=== PATIENT | female | born 1985 | race Two or more races ===

== ENCOUNTER 2018-08-31 16:52 | Emergency (ER) | payer MEDICAID ==
[~2018-08-31] VITALS: Ht 170.2 cm; Wt 103.5 kg
--- NOTE | 2018-08-31 17:08 | NUR ---
PT ARRIVED TO ROOM 16 FROM ED TRIAGE, PT AMBULATORY. PT C/O NAUSEA, INTERMITTENT ABDOMINAL PAIN AND DIARRHEA, AND BODY ACHES. PT ALSO C/O THROAT SORENESS. VSS, AAO X 4, RESTING COMFORTABLY ON GURNEY. SIDERAIL X [address], CALL LIGHT AND BELONGINGS WITHIN REACH, FRIEND AT BEDSIDE.
[2018-08-31] MEDS ORDERED: KETOROLAC 30 MG/1 ML IM ONE (17:30)
--- NOTE | 2018-08-31 17:31 | NUR ---
PT AMBULATORY TO BATHROOM, UA CUP GIVEN TO PT.
[2018-08-31 17:48] LABS: BASOPHILS # (AUTO) 0.01 x10^3/uL (0-0.1); BASOPHILS % (AUTO) 0 % (0-1); EOSINOPHILS # (AUTO) 0.02 x10^3/uL (0-0.4); EOSINOPHILS % (AUTO) 0 % (1-7); LYMPHOCYTES # (AUTO) 1.35 x10^3/uL (1-3.4); LYMPHOCYTES % (AUTO) 18 % (22-44); MD NO; MEAN CORPUSCULAR HEMOGLOBIN 29.2 pg (27.0-34.8); MEAN CORPUSCULAR HGB CONC 33.3 g/dL (32.4-35.8); MEAN CORPUSCULAR VOLUME 87.6 fL (80-100); MEAN PLATELET VOLUME 9.1 fL (7.4-10.4); MONOCYTES % (AUTO) 5 % (2-9); NEUTROPHILS # (AUTO) 5.91 x10^3/uL (1.8-6.8); NEUTROPHILS % (AUTO) 77 % (42-75); PLATELET COUNT 213 x10^3/uL (130-400); RED BLOOD COUNT 4.91 x10^6/uL (3.82-5.3); RED CELL DISTRIBUTION WIDTH 13.3 % (9.6-15.2)
[2018-08-31 18:01] LABS: MICROSCOPIC AUTO
[2018-08-31 18:07] LABS: CULTURE INDICATED? YES
[2018-08-31] MEDS ORDERED: KETOROLAC 30 MG/1 ML ONE (18:38)
[2018-08-31 18:42] VITALS: BP 127/88
--- NOTE | 2018-08-31 18:43 | NUR ---
PT MEDICATED FOR PAIN PER MD ORDER, SEE EMAR. VSS, PT RESTING, NO NEEDS AT THIS TIME. MD TO BEDSIDE, PLAN TO DISCHARGE HOME.
--- NOTE | 2018-08-31 18:56 | NUR ---
Patient/Caregiver given discharge instructions and they have confirmed that they understand the instructions. Patient ambulatory with steady gait.
== END 2018-08-31 18:57 | disposition home or self-care (01) ==
LOC: ED 18:51
DX: N30.01 Acute cystitis with hematuria (principal); M79.10 Myalgia, unspecified site
CPT/HCPCS: 36415; 71045; 81001; 84703; 85025; 87081; 87086; 87880; 96372; 99284; J1885

== ENCOUNTER 2018-10-29 09:30 | Emergency (ER) | payer MEDICAID ==
[~2018-10-29] VITALS: Ht 170.2 cm; Wt 101.5 kg
[2018-10-29 12:19] VITALS: BP 114/78
== END 2018-10-29 12:50 | disposition home or self-care (01) ==
LOC: ED 10:34
DX: N30.00 Acute cystitis without hematuria (principal); K29.00 Acute gastritis without bleeding; Z04.9 Encounter for examination and observation for unspecified reason; Z90.49 Acquired absence of other specified parts of digestive tract
CPT/HCPCS: 36415; 76700; 80053; 81001; 81025; 83690; 85025; 87086; 99284

== ENCOUNTER 2020-02-07 21:29 | Emergency (ER) | payer MEDICAID ==
[~2020-02-07] VITALS: Ht 170.2 cm; Wt 108.6 kg
[2020-02-07 21:46] VITALS: BP 131/79
[2020-02-07 22:13] LABS: MICROSCOPIC AUTO
[2020-02-07 22:36] LABS: BASOPHILS % (AUTO) 1 % (0-1); EOSINOPHILS % (AUTO) 1 % (1-7); LYMPHOCYTES % (AUTO) 26 % (22-44); MEAN CORPUSCULAR HEMOGLOBIN 28.8 pg (27.0-34.8); MEAN CORPUSCULAR HGB CONC 33.9 g/dL (32.4-35.8); MEAN PLATELET VOLUME 8.5 fL (7.4-10.4); MONOCYTES % (AUTO) 4 % (2-9); NEUTROPHILS % (AUTO) 68 % (42-75); PLATELET COUNT 310 x10^3/uL (130-400); RED BLOOD COUNT 4.69 x10^6/uL (3.82-5.3); RED CELL DISTRIBUTION WIDTH 13.1 % (9.6-15.2)
[2020-02-07 22:39] LABS: MD NO
[2020-02-07 22:43] LABS: ALANINE AMINOTRANSFERASE 16 U/L (12-78); ALBUMIN 3.6 g/dL (3.4-5.0); ANION GAP 5 mmol/L (5-15); CHLORIDE 107 mmol/L (98-107); CREATININE 0.84 mg/dL (0.55-1.02)
[2020-02-07 22:47] LABS: ALKALINE PHOSPHATASE 69 U/L (45-117); BILIRUBIN,TOTAL 0.5 mg/dL (0.2-1.0); TOTAL PROTEIN 7.9 g/dL (6.4-8.2)
--- NOTE | 2020-02-07 22:52 | NUR ---
PT TO ROOM FROM LOBBY
--- NOTE | 2020-02-07 23:39 | NUR ---
PT HAS BEEN SEEN BY PROVIDER. TO BE DISCHARGED. AWAITING PAPERWORK AT THIS TIME
--- NOTE | 2020-02-08 00:02 | NUR ---
Patient/Caregiver given discharge instructions and they have confirmed that they understand the instructions. Patient ambulatory with steady gait.
== END 2020-02-08 00:04 | disposition home or self-care (01) ==
LOC: ED 22:30
DX: K29.50 Unspecified chronic gastritis without bleeding (principal); R10.13 Epigastric pain; Z90.49 Acquired absence of other specified parts of digestive tract
CPT/HCPCS: 36415; 80053; 81001; 83690; 84703; 85025; 87086; 99283